=== PATIENT | male | born 1970 | race Two or more races ===

== ENCOUNTER 2023-04-01 23:13 | Inpatient (IN) | payer OTHER ==
[~2023-04-01] VITALS: Ht 170.2 cm; Wt 80.0 kg
[2023-04-01] MEDS: dilTIAZem 25 MG/5 ML VIAL IV ONE ×2 (23:45→23:53)
[2023-04-01 23:52] LABS: Basophils # (auto) 0.1 10 ^3/uL (0-0.2); Eosinophils # (auto) 0.2 10 ^3/uL (0-0.8); Eosinophils % (auto) 3.7 % (0.0-7.0); Hematocrit 44.1 % (41.0-53.0); Hemoglobin 15.2 g/dL (13.5-17.5); Lymphocytes # (auto) 2.4 10 ^3/uL (0.4-5.4); Lymphocytes % (auto) 36.4 % (10.0-50.0); Mean Corpuscular Hgb Conc. 34.4 g/dL (32.0-36.0); Mean Corpuscular Volume 90.1 fL (80.0-100.0); Monocytes # (auto) 0.4 10 ^3/uL (0-1.3); Monocytes % (auto) 5.6 % (0.0-12.0); Neutrophils # (auto) 3.5 10 ^3/uL (1.6-8.6); Neutrophils % (auto) 53.3 % (37.0-80.0); Red Blood Cells 4.89 10^6/uL (4.5-5.90); White Blood Cell 6.7 10^3/uL (4.4-10.8)
[2023-04-02] VITALS: PULSE 160; RESP 24; O2SAT 95
[2023-04-02] MEDS ORDERED: AMIODARONE BOLUS KIT 100 ML IV ONE
[2023-04-02] MEDS ORDERED: dilTIAZem 25 MG/5 ML VIAL IV ONE
[2023-04-02 00:14] LABS: Chloride 108 mmol/L (98-107); Potassium 3.9 mmol/L (3.5-5.1); Sodium 138 mmol/L (136-145)
[2023-04-02 00:15] LABS: Anion Gap 8 (5-15); Calcium 8.7 mg/dL (8.7-10.4); Carbon Dioxide 22 mmol/L (20-30)
[2023-04-02] MEDS ORDERED: AMIODARONE 450mg/250ml AE 250 ML IV SCH ×2 (00:15→06:15)
[2023-04-02 00:20] LABS: BUN/Creatinine Ratio 14.7 (10.0-20.0); Blood Urea Nitrogen 14 mg/dL (9-23); Glucose 127 mg/dL (74-106)
[2023-04-02] MEDS: AMIODARONE BOLUS KIT 100 ML IV ONE (01:16)
[2023-04-02] MEDS: AMIODARONE 450mg/250ml AE 250 ML IV SCH ×2 (01:39→07:36)
[2023-04-02 02:55] LABS: Amphetamine Screen, Urine Neg (NEGATIVE); Barbiturate Scree,Urine Neg (NEGATIVE); Benzodiazephine Screen, Urine Neg (NEGATIVE); Cannabinoid Screen, Urine Neg (NEGATIVE); Cocaine Screen, Urine Neg (NEGATIVE); Opiate Scree,Urine Neg (NEGATIVE); Phencyclidine Screen, Urine Neg (NEGATIVE)
[2023-04-02] MEDS ORDERED: NITROGLYCERIN 0.4 MG SL TAB SL PRN (05:45)
[2023-04-02] MEDS ORDERED: ONDANSETRON HCL 4 MG/2 ML VIAL IV PRN (05:45)
[2023-04-02] MEDS ORDERED: MORPHINE SULFATE INJ 2 MG/ml SYRG IV PRN (05:45)
[2023-04-02] MEDS ORDERED: ACETAMINOPHEN 325 MG TAB PO PRN (05:45)
[2023-04-02 08:08] VITALS: PULSE 65; RESP 17; O2SAT 96
[2023-04-02 08:22] LABS: Basophils # (auto) 0 10 ^3/uL (0-0.2); Basophils % (auto) 0.7 % (0.0-2.0); Eosinophils # (auto) 0.1 10 ^3/uL (0-0.8); Hemoglobin 14.2 g/dL (13.5-17.5); Lymphocytes # (auto) 1.3 10 ^3/uL (0.4-5.4); Lymphocytes % (auto) 22.6 % (10.0-50.0); Mean Corpuscular Hemoglobin 30.6 pg (28.0-32.0); Mean Corpuscular Hgb Conc. 33.9 g/dL (32.0-36.0); Mean Corpuscular Volume 90.2 fL (80.0-100.0); Monocytes # (auto) 0.4 10 ^3/uL (0-1.3); Monocytes % (auto) 6.2 % (0.0-12.0); Neutrophils # (auto) 4.1 10 ^3/uL (1.6-8.6); Neutrophils % (auto) 68.5 % (37.0-80.0); Red Blood Cells 4.66 10^6/uL (4.5-5.90); Red Cell Distribution Width 14.1 % (11.8-14.3)
[2023-04-02 08:25] LABS: Alanine Aminotransferase 23 U/L (7-40); Alkaline Phosphatase 56 U/L (46-116); Anion Gap 6 (5-15); Aspartate Aminotransferase 23 U/L (13-40); BUN/Creatinine Ratio 16.5 (10.0-20.0); Blood Urea Nitrogen 14 mg/dL (9-23); Calcium 8.6 mg/dL (8.5-10.1); Carbon Dioxide 24 mmol/L (20-30); Chloride 110 mmol/L (98-107); Cholesterol 151 mg/dL (< 200); Glucose 108 mg/dL (74-106); LDL Cholesterol 97 mg/dL (< 100); Potassium 4.3 mmol/L (3.5-5.1); Sodium 140 mmol/L (136-145); Triglycerides 62 mg/dL (< 150)
[2023-04-02 08:26] LABS: HDL Cholesterol 51 mg/dL (40-59); Phosphorus 3.4 mg/dL (2.4-5.1)
[2023-04-02 08:32] LABS: INR 1.04 (0.9-1.15); Partial Thromboplastin Time 29.1 SEC (24.5-34.5); Prothrombin Time 10.9 sec (9.3-11.8)
[2023-04-02] MEDS ORDERED: ENOXAPARIN SOD 40 MG/0.4 ML SYRINGE SC SCH (10:00)
[2023-04-02] MEDS ORDERED: ASPirin 81 mg TAB PO SCH (10:00)
[2023-04-02] MEDS: ENOXAPARIN SOD 100 MG/1 ML SYRINGE SC SCH (10:08)
[2023-04-02 11:08] LABS: Magnesium 1.9 mg/dL (1.6-2.6)
[2023-04-02] MEDS: AMIODARONE BOLUS KIT 0 ML IV ONE (11:32)
[2023-04-02] MEDS: AMIODARONE 450mg/250ml AE 250 ML IV ONE (11:32)
[2023-04-02 20:18] VITALS: PULSE 66; RESP 13; O2SAT 97
[2023-04-03 00:55] VITALS: BP 118/72; PULSE 78; RESP 14; TEMP 97.5; O2SAT 98
[2023-04-03] MEDS: AMIODARONE BOLUS KIT 100 ML IV ONE (01:10)
[2023-04-03 02:19] LABS: Urine Bacteria NONE SEEN /hpf (None Seen); Urine Blood Negative /uL (Negative); Urine Clarity Clear (Clear); Urine Color Colorless (Yellow); Urine Protein, UAD Negative (Negative); Urine Specific Gravity 1.019 (1.001-1.035); Urine Urobilinogen Normal (Negative); Urine WBC <1 /hpf (0 - 3); Urine pH 6.5 (5.0-8.0)
== END 2023-04-03 01:08 | disposition short-term general hospital (02) | DRG 282 ==
LOC: ER 23:13 → EDBD 23:13 → TELE 04-02 05:42 → ER 04-02 05:44 → TELE 04-02 05:44
PROVIDERS: ADMIT Nurse Practitioner; ATTEND Internal Medicine
DX: I48.20 Chronic atrial fibrillation, unspecified (principal); I21.A1 Myocardial infarction type 2; I95.9 Hypotension, unspecified; I45.6 Pre-excitation syndrome
CPT/HCPCS: 36415; 80048; 80053; 80061; 80307; 81001; 82306; 82607; 83036; 83605; 83735; 83880; 84100; 84443; 84484; 85025; 85610; 85730; 93005; 93306; 96365; 96375; 99291; G0378